=== PATIENT | female | born 1985 | race Caucasian/White ===

== ENCOUNTER 2016-06-11 21:00 | Emergency (ER) | payer BC | END 2016-06-12 00:30 | disposition left against medical advice (07) | LOC: ER 21:00 | DX: Z53.21 Procedure and treatment not carried out due to patient leaving prior to being seen by health care provider (principal) | CPT/HCPCS: 36415; 80048; 84702; 85025; 86901 ==

== ENCOUNTER 2016-06-12 14:15 | Emergency (ER) | payer BC | END 2016-06-12 18:25 | disposition home or self-care (01) | LOC: ER 14:15 | CPT/HCPCS: 36415; 76817; 80048; 81001; 84702; 85025; 86901; 87088; 87491; 87591; 87800 ==